=== PATIENT | female | born 1950 | race Caucasian/White ===

== ENCOUNTER → 2020-08-25 | Outpatient (CLI) | payer MEDICARE ==
--- NOTE | 2020-08-26 18:34 | SLEEPHOME ---
DATE: 08/25/2020 ORDERED BY: Dr. Lopez Diagnostic home sleep testing was performed in light of concern for the obstructive sleep apnea syndrome in this patient with a history of somnolence. For testing, a Nox T3 respiratory monitoring device was used. Continuous record was made of pulse, oxygen saturation, air flow, chest and abdominal strain, and body position. Nine hours and 59 minutes of data were reviewed. There were 9 hours and 45 minutes marked as time in bed. During the interval marked time in bed, there were 83 respiratory events identified of 10 seconds in duration or greater for a respiratory event index of 8.5. The events were more frequently obstructive. However, 39 mixed and central apneas were also seen. Baseline pulse rate was 84. Pulse rate ranged 105 to 118. Baseline saturation was 93%. Saturations fell as low as 90% and testing was performed in both the supine and nonsupine positions. IMPRESSION: Abnormal home sleep testing with repetitive respiratory events and oxygen desaturations to 90% with a respiratory event index of 8.5 is consistent with the obstructive sleep apnea syndrome. RECOMMENDATION: Given the occurrence of central apneic events, referral for a formal sleep evaluation is recommended. %%CCLIST%%
== END ==
LOC: M SLEEP HO 08:09
PROVIDERS: ATTEND Internal Medicine Cardiovascular Disease
DX: R40.0 Somnolence (principal)

== ENCOUNTER → 2020-10-24 | Outpatient (CLI) | payer MEDICARE ==
--- NOTE | 2020-10-27 14:42 | SLEEPCENT ---
NOCTURNAL POLYSOMNOGRAPHY DATE: 10/24/2020 ORDERED BY: REJI Lowery Nocturnal polysomnography was performed for evaluation of sleep physiology in this patient with a history of excessive somnolent snoring and nonrestorative sleep. 7 hours and 38 minutes of data were reviewed. There were 318 minutes of sleep identified. Sleep latency was prolonged at 71 minutes. REM latency was prolonged at 315 minutes. Sleep architecture showed poor progression, periods of wake, and one REM cycle late in the study. Overall sleep efficiency was 70.2%. The electrocardiogram showed a sinus rhythm with an average heart rate of 88 beats per minute. Unifocal ventricular ectopic beats were seen. EEG showed normal waveforms for wake and sleep. There were 81 respiratory events identified of 10 seconds in duration or greater for an apnea-hypopnea index of 15.3. The events were primarily obstructive, not exclusive to sleep stage nor body posture. Arousals from respiratory events occurred 1.9 times per hour and oxygen desaturations were seen into the 80s. Some limb activity was appreciated in the EMG lead. Limb movement arousal index was 3.7. IMPRESSION: Obstructive sleep apnea syndrome (G47.33), apnea-hypopnea index 15.3. RECOMMENDATION: The patient should be encouraged to return to [facility]. In the interim, alcohol and sedative avoidance should be practiced and caution exercised during the operation of motor vehicles.
== END ==
LOC: M SLEEP 20:00
PROVIDERS: ATTEND Nurse Practitioner Family
DX: G47.33 Obstructive sleep apnea (adult) (pediatric) (principal)

== ENCOUNTER → 2021-01-05 | Outpatient (CLI) | payer MEDICARE ==
--- NOTE | 2021-01-07 08:49 | SLEEPCENT ---
NOCTURNAL POLYSOMNOGRAPHY DATE: 01/05/2021 ORDERED BY: REJI Lowery Nocturnal polysomnography was performed for the titration of pressure therapy in this patient with obstructive sleep apnea syndrome with apnea-hypopnea index of 15.3. For testing a ResMed AirFit N20 nasal mask of medium size with a chin strap was used, 4 cm of water pressure were applied to the circuit, and the lights were extinguished. 7 hours and 42 minutes of data were reviewed. There were 253 minutes of sleep identified. Sleep latency was prolonged at 85.5 minutes. REM latency was not achieved. Sleep architecture was poor with a period of wake between 3 and 4:30 resulting in a reduced sleep efficiency of 55.4%. The electrocardiogram showed a sinus rhythm with an PVCs and average heart rate of 76 beats per minute. EEG showed reasonably normal waveforms for wake and sleep. Respiratory events were palliated with CPAP at a pressure of +8. Some minor limb activity was noted. Limb movement arousal index on this occasion 7.1. IMPRESSION: Obstructive sleep apnea syndrome (G47.33). RECOMMENDATION: Nightly use of pressure therapy 8 cm of water appears sufficient to overcome obstructive respiratory events. Given the absence of REM sleep close clinical follow-up will be necessary and pressure adjustment may be needed pending the patient's response. Dr. Arthur
== END ==
LOC: M SLEEP 20:00
PROVIDERS: ATTEND Nurse Practitioner Family
DX: G47.33 Obstructive sleep apnea (adult) (pediatric) (principal)

== ENCOUNTER → 2022-03-09 | Outpatient (CLI) | payer MEDICARE | LOC: M RAD 12:40 | PROVIDERS: ATTEND Physician Assistant | DX: I70.203 Unspecified atherosclerosis of native arteries of extremities, bilateral legs (principal); I70.201 Unspecified atherosclerosis of native arteries of extremities, right leg; M79.662 Pain in left lower leg; M79.604 Pain in right leg ==

== ENCOUNTER 2022-03-23 13:34 | Observation (INO) | payer MEDICARE ==
[~2022-03-23] VITALS: Ht 167.6 cm; Wt 101.4 kg
[2022-03-23] MEDS ORDERED: VALS1TAB67 PO (13:43)
[2022-03-23] MEDS ORDERED: ATOM100C6 PO (13:43)
[2022-03-23] MEDS ORDERED: EZET10TA21 PO (13:43)
[2022-03-23] MEDS ORDERED: CARV25TA PO (13:43)
[2022-03-23] MEDS ORDERED: ALLO300T2 PO (13:43)
[2022-03-23] MEDS ORDERED: MYRB50TA PO (13:43)
[2022-03-23] MEDS ORDERED: FLUTISP NARES (13:43)
[2022-03-23] MEDS ORDERED: OMEP40CA5 PO (13:43)
[2022-03-23] MEDS ORDERED: DULO1CAP4 PO (13:43)
[2022-03-23] MEDS ORDERED: DULO1CAP6 PO (13:43)
[2022-03-23] MEDS ORDERED: AMLO1TAB25 PO (13:43)
[2022-03-23] MEDS ORDERED: LEVO100T5 PO (13:43)
[2022-03-23 16:30] LABS: BASO # 0.1 10^3/uL (0.0-0.2); BASO % 0.6 % (0.0-1.0); EOS # 0.2 10^3/uL (0.0-0.5); HEMATOCRIT 35.5 % (36.0-47.0); HEMOGLOBIN 11.1 g/dl (12.0-15.5); LYMPH # 2.8 10^3/uL (1.5-5.0); LYMPH % 31.7 % (24.0-44.0); MEAN CORPUSCULAR HEMOGLOBIN 28.8 pg (27.0-33.0); MEAN CORPUSCULAR HGB CONC 31.3 g/dl (32.0-36.5); MEAN CORPUSCULAR VOLUME 92.2 fl (80.0-96.0); MONO # 0.7 10^3/uL (0.0-0.8); NEUTROPHILS # 5.1 10^3/uL (1.5-8.5); NEUTROPHILS % 57.4 % (36.0-66.0); PLATELET COUNT, AUTOMATED 290 10^3/uL (150-450); RED BLOOD COUNT 3.85 10^6/uL (4.00-5.40); WHITE BLOOD COUNT 8.8 10^3/uL (4.0-10.0)
[2022-03-23 16:32] LABS: VENOUS BASE EXCESS -5.7 (-2.0-2.0); VENOUS HCO3 20.7 MEQ/L (23.0-27.0); VENOUS O2 SATURATION 84.5 % (60.0-80.0); VENOUS PARTIAL PRESSURE O2 50.8 mmHg (30.0-50.0); VENOUS STANDARD HCO3 19.5 MEQ/L
[2022-03-23 16:53] LABS: CK-MB VALUE MASS < 1.0 NG/ML (<3.6); CPK CREATINE PHOSPHOKINASE 57 U/L (26-192); MB/CK RELATIVE INDEX 1.75 (< OR =4)
[2022-03-23 17:01] LABS: ALBUMIN 3.1 GM/DL (3.2-5.2); ALT/SGPT 19 U/L (12-78); BILIRUBIN,DIRECT < 0.1 MG/DL (0.0-0.2); BILIRUBIN,TOTAL 0.3 MG/DL (0.2-1.0); BLOOD UREA NITROGEN 41 MG/DL (7-18); CALCIUM LEVEL 9.3 MG/DL (8.8-10.2); CARBON DIOXIDE LEVEL 22 MEQ/L (21-32); CHLORIDE LEVEL 111 MEQ/L (98-107); CREATININE FOR GFR 2.79 MG/DL (0.55-1.30); GLOMERULAR FILTRATION RATE 17.9 (>45); GLUCOSE, FASTING 101 MG/DL (70-100); NT-PRO BNP 542 PG/ML (<125); POTASSIUM SERUM 5.3 MEQ/L (3.5-5.1); SODIUM LEVEL 139 MEQ/L (136-145); THYROXINE (T4) 9.7 UG/DL (4.5-12.0); TOTAL PROTEIN 7.1 GM/DL (6.4-8.2)
[2022-03-23] MEDS ORDERED: FUROSEMIDE 20MG/2ML VIAL (J1940) IV ONE (20:45)
[2022-03-23] MEDS ORDERED: GLUCOSE 4GM CHEW TABLET PO PRN (20:55)
[2022-03-23] MEDS ORDERED: DEXTROSE 50% 50 ML SYRINGE IV PRN (20:55)
[2022-03-23] MEDS ORDERED: GLUCAGON INJ 1MG VIAL SC PRN (20:55)
[2022-03-23] MEDS ORDERED: VALSARTAN 80 MG TAB (DIOVAN) PO SCH (21:00)
[2022-03-23] MEDS ORDERED: INSULIN LISPRO (NovoLOG) PER UNIT SC SCH (21:00)
[2022-03-23] MEDS: CARVedilol 12.5 MG TAB PO SCH (21:00)
[2022-03-23] MEDS ORDERED: DULoxetine 20 MG CAP (CYMBALTA) PO SCH (21:00)
[2022-03-23] MEDS ORDERED: EZETIMIBE 10MG TABLET (ZETIA) PO SCH (21:00)
[2022-03-23] MEDS ORDERED: BAYE325T12 PO (21:04)
[2022-03-23] MEDS ORDERED: IBUP-1720 PO (21:04)
[2022-03-23] MEDS ORDERED: FOLI1TAB11 PO (21:04)
[2022-03-23] MEDS ORDERED: HOME MED LIST COMPLETE! XX SCH (21:05)
[2022-03-23 23:30] VITALS: BP 130/78
[2022-03-24] MEDS ORDERED: LEVOTHYROXINE 100MCG TABLET (0.1MG) PO SCH (06:00)
[2022-03-24] MEDS ORDERED: HEPARIN SOD (PORCINE) 5000UNITS/ML 1ML VIAL/SYRINGE SC SCH (06:00)
[2022-03-24 06:47] LABS: HEMATOCRIT 32.6 % (36.0-47.0); MEAN CORPUSCULAR HEMOGLOBIN 28.8 pg (27.0-33.0); MEAN CORPUSCULAR HGB CONC 30.7 g/dl (32.0-36.5); MEAN CORPUSCULAR VOLUME 93.9 fl (80.0-96.0); PLATELET COUNT, AUTOMATED 239 10^3/uL (150-450); RED BLOOD COUNT 3.47 10^6/uL (4.00-5.40); WHITE BLOOD COUNT 8.8 10^3/uL (4.0-10.0)
[2022-03-24 07:17] LABS: ALBUMIN 2.5 GM/DL (3.2-5.2); BILIRUBIN,TOTAL 0.1 MG/DL (0.2-1.0); CALCIUM LEVEL 8.3 MG/DL (8.8-10.2); CREATININE FOR GFR 2.53 MG/DL (0.55-1.30); GLOMERULAR FILTRATION RATE 20.1 (>45); POTASSIUM SERUM 4.5 MEQ/L (3.5-5.1); TOTAL PROTEIN 5.8 GM/DL (6.4-8.2)
[2022-03-24] MEDS: INSULIN LISPRO (NovoLOG) PER UNIT SC SCH ×2 (08:49→12:00)
[2022-03-24 08:50] VITALS: BP 126/80
[2022-03-24] MEDS: CARVedilol 12.5 MG TAB PO SCH (08:50)
== END 2022-03-24 13:15 | disposition home or self-care (01) ==
LOC: M ED 13:34 → M ED INP 13:35 → ENRESERV 22:35 → M MS5PR 23:19
PROVIDERS: ADMIT Student in an Organized Health Care Education/Training Program; ATTEND Student in an Organized Health Care Education/Training Program
DX: N17.9 Acute kidney failure, unspecified (principal); N18.30 Chronic kidney disease, stage 3 unspecified; M10.9 Gout, unspecified; I10 Essential (primary) hypertension; I50.9 Heart failure, unspecified; I73.9 Peripheral vascular disease, unspecified; R32 Unspecified urinary incontinence; I44.0 Atrioventricular block, first degree; F32.9 Major depressive disorder, single episode, unspecified; E11.9 Type 2 diabetes mellitus without complications; Z79.899 Other long term (current) drug therapy; E03.9 Hypothyroidism, unspecified; Z88.1 Allergy status to other antibiotic agents; Z88.8 Allergy status to other drugs, medicaments and biological substances
CPT/HCPCS: 36415; 71046; 80048; 80053; 80076; 82550; 82553; 82803; 83605; 83880; 84436; 84443; 84484; 85025; 85027; 87486; 87581; 87633; 87798; 93005; 96372; 96374; 99284; G0378; J1644; J1815; J1940

== ENCOUNTER → 2024-09-20 | Outpatient (CLI) | payer MEDICARE ==
[~2024-09-20] MED LIST: ALLO300T2 PO; AMLO1TAB25 PO; ATOM100C6 PO; BAYE325T2 PO; CARV25TA PO; DULO1CAP4 PO; DULO1CAP6 PO; EZET10TA21 PO; FLUTISP NARES; FOLI1TAB11 PO; IBUP-1720 PO; LEVO100T5 PO; MYRB50TA PO; OMEP40CA5 PO; VALS1TAB67 PO
== END ==
LOC: M EKG 10:13
PROVIDERS: ATTEND Physician Assistant
DX: R00.2 Palpitations (principal); I48.3 Typical atrial flutter; I49.3 Ventricular premature depolarization

== ENCOUNTER → 2024-10-18 | Outpatient (CLI) | payer MEDICARE | LOC: M EKG 14:29 | PROVIDERS: ATTEND Physician Assistant | DX: I48.3 Typical atrial flutter (principal); R00.2 Palpitations; R00.0 Tachycardia, unspecified ==

== ENCOUNTER → 2025-04-25 | Outpatient (CLI) | payer MEDICARE ==
[~2025-04-25] MED LIST changes: -EZET10TA21 PO; +EZET10TA57 PO
== END ==
LOC: M EKG 15:46
PROVIDERS: ATTEND Physician Assistant
DX: R00.2 Palpitations (principal)

== ENCOUNTER → 2025-06-13 | Outpatient (CLI) | payer MEDICARE | LOC: M CARPUL 08:39 | PROVIDERS: ATTEND Nurse Practitioner Family | DX: Z01.818 Encounter for other preprocedural examination (principal); N18.6 End stage renal disease ==